=== PATIENT | female | born 1995 | race Caucasian/White ===

== ENCOUNTER 2019-05-03 18:49 | Outpatient (REF) | payer MEDICAID, SELFPAY ==
[2019-05-03 19:19] LABS: HCT 36.9 % (36.0-46.0); HGB 12.9 g/dL (12.0-15.5); Mean Corpuscular Hemoglobin 32.7 pg (27.0-33.0); Mean Corpuscular Volume 93.4 fL (80-95); Mean Platelet Volume 12.1 fL (8.0-11.0); Platelet Count 178 x1000/uL (130-400); RBC 3.95 m/cumm (4.00-5.20); RBC Distribution Width 11.5 % (11.7-14.6); White Blood Cell Count 4.43 k/cumm (4.4-10.8)
[2019-05-07 11:57] LABS: Lyme Ab w Rflx to Lyme Confirm Negative (Negative)
== END 2019-05-03 19:09 ==
LOC: NCHCN 18:49
PROVIDERS: PCP Pediatrics; Visit Provider Nurse Practitioner Family
DX: N39.0 Urinary tract infection, site not specified (principal); R10.9 Unspecified abdominal pain; M25.50 Pain in unspecified joint
CPT/HCPCS: 85027; 86618; 87086

== ENCOUNTER 2019-05-10 14:19 | Outpatient (REF) | payer MEDICAID, SELFPAY ==
[2019-05-10 19:21] LABS: ESR 11 mm/hr (0-20)
[2019-05-10 22:59] LABS: C-Reactive Protein 0.07 mg/dL (0.0-0.3)
[2019-05-14 14:56] LABS: ANA Titer Pattern 1:160 Speckled
[2019-05-15 08:37] LABS: ANA Interpretation Positive (Negative)
== END 2019-05-10 14:39 ==
LOC: NCHCN 14:19
PROVIDERS: PCP Pediatrics; Visit Provider Nurse Practitioner Family
DX: M25.50 Pain in unspecified joint (principal)
CPT/HCPCS: 85652; 86038; 86140

== ENCOUNTER 2020-04-18 16:44 | Outpatient (REF) | payer MEDICAID, SELFPAY ==
[2020-04-18 18:29] LABS: Abs Immature Grans 0.01 10^3/uL (0.0-0.06); Absolute Basophil Count 0.02 10^3/uL (0.0-0.2); Absolute Eosinophil Count 0.09 10^3/uL (0.0-0.7); Absolute Lymphocyte Count 1.83 10^3/uL (1.2-3.4); Absolute Monocyte Count 0.54 10^3/uL (0.1-0.8); Absolute Neutrophil Count 3.64 10^3/uL (1.2-6.7); Basophils % 0.3; Eosinophils % 1.5; HCT 40.3 % (36.0-46.0); HGB 13.6 g/dL (11.2-15.7); Immature Grans % 0.2; Lymphocytes % 29.9; MCH 32.2 pg (27.0-33.0); MCHC 33.7 % (32.0-36.0); MCV 95.5 fL (80-95); MPV 11.7 fL (8.0-11.0); Monocytes % 8.8; Neutrophils % 59.3; Nucleated RBC 0 %; Platelet Count 248 10^3/uL (130-400); RBC 4.22 10^6/uL (3.93-5.22); RDW 11.5 % (11.7-14.6); RDW-SD 40.2 fL; WBC 6.13 10^3/uL (4.4-10.8)
[2020-04-18 19:15] LABS: ALT 23 U/L (14-59); AST 14 U/L (15-37); Alkaline Phosphatase 46 U/L (46-116); Anion Gap 10.6 mmol/L (3-11); BUN 9 mg/dL (7-18); Bilirubin, Total 0.4 mg/dL (0.2-1.0); CO2 26.4 mmol/L (21.0-32.0); CREATININE 0.7 mg/dL (0.55-1.02); Calcium 9.7 mg/dL (8.5-10.1); Chloride 105 mmol/L (98-107); Glucose 75 mg/dL (74-106); Sodium 142 mmol/L (136-145); Total Protein 7.9 g/dL (6.4-8.2)
== END 2020-04-18 16:45 | disposition home or self-care (01) ==
LOC: NCHCN 16:44
PROVIDERS: PCP Nurse Practitioner Family; Visit Provider Nurse Practitioner Family
DX: R53.82 Chronic fatigue, unspecified (principal); R82.998 Other abnormal findings in urine
CPT/HCPCS: 80053; 85025; 87086

== ENCOUNTER 2020-04-29 13:04 | Outpatient (CLI) | payer MEDICAID, SELFPAY ==
--- NOTE | 2020-06-03 13:09 | W.CARDEVENT ---
Date of service: 06/03/20 Time of Service: 13:09 Cardiac Event Recorder Referring Provider:: Matty Indications:: dizziness Cardiac Event Note: This is a 30-day monitor with occasional dizziness. ?The patient was in normal sinus rhythm and sinus tachycardia for the majority of the recording ?There were 2 auto triggered events associated with sinus tachycardia and artifact. ?There were no episodes of atrial fibrillation, no pauses greater than 3 seconds notes high degree heart block. ?There is no evidence of malignant arrhythmia.
== END 2020-04-29 13:05 | disposition home or self-care (01) ==
PROVIDERS: PCP Nurse Practitioner Family; Visit Provider Nurse Practitioner Family
DX: R42 Dizziness and giddiness (principal)
CPT/HCPCS: 93270

== ENCOUNTER 2020-09-16 10:37 | Outpatient (CLI) | payer MEDICAID, SELFPAY ==
--- NOTE | 2020-09-16 10:30 | RT.EKG_ITS ---
APPROVED REPORT Exam: Resting ECG Reason for Exam: evaluations Patient Location: O HR:108 bpm ECG Measurements Heart Rate 108 AXIS OK 129 P 76 QRSd 87 QRS 83 QT 323 T -10 QTc 433 Conclusion Sinus tachycardia...rate> 99 RSR' in V1 or V2, probably normal variant...small R' only
== END 2020-09-16 10:38 | disposition home or self-care (01) ==
LOC: DI.CARD 10:42
PROVIDERS: PCP Student in an Organized Health Care Education/Training Program; Visit Provider Internal Medicine Cardiovascular Disease
DX: R42 Dizziness and giddiness (principal)
CPT/HCPCS: 93010